=== PATIENT | female | born 1950 ===

== ENCOUNTER 2025-01-09 15:37 | Outpatient (RCR) | payer MEDICARE, SELFPAY ==
[2024-12-22 14:00] LABS: Glucose - Point of Care 124 mg/dl (70-99)
[2024-12-22 14:33] LABS: Glucose - Point of Care 108 mg/dl (70-99)
[2024-12-28 14:53] LABS: Glucose - Point of Care 162 mg/dl (70-99)
[2024-12-28 15:41] LABS: Glucose - Point of Care 114 mg/dl (70-99)
[2024-12-30 14:43] LABS: Glucose - Point of Care 127 mg/dl (70-99)
[2024-12-30 15:20] LABS: Glucose - Point of Care 97 mg/dl (70-99)
[2025-01-04 14:53] LABS: Glucose - Point of Care 124 mg/dl (70-99)
[2025-01-04 15:35] LABS: Glucose - Point of Care 85 mg/dl (70-99)
[2025-01-09 14:55] LABS: Glucose - Point of Care 95 mg/dl (70-99)
[2025-01-09 15:35] LABS: Glucose - Point of Care 101 mg/dl (70-99)
== END 2025-01-09 23:59 | disposition home or self-care (01) ==
LOC: CRHB 15:37
PROVIDERS: ATTENDING PHYSICIAN Student in an Organized Health Care Education/Training Program; PRIMARYCARE PHYSICIAN Family Medicine
DX: I25.10 Atherosclerotic heart disease of native coronary artery without angina pectoris (principal); Z95.1 Presence of aortocoronary bypass graft; Z95.4 Presence of other heart-valve replacement
CPT/HCPCS: 82962; G0422; G0423

== ENCOUNTER 2025-02-08 15:29 | Outpatient (RCR) | payer MEDICARE, SELFPAY ==
[2025-01-11 14:56] LABS: Glucose - Point of Care 110 mg/dl (70-99)
[2025-01-11 15:38] LABS: Glucose - Point of Care 89 mg/dl (70-99)
== END 2025-02-08 23:59 | disposition home or self-care (01) ==
LOC: CRHB 15:29
PROVIDERS: ATTENDING PHYSICIAN Student in an Organized Health Care Education/Training Program; PRIMARYCARE PHYSICIAN Family Medicine
DX: Z95.1 Presence of aortocoronary bypass graft (principal); Z95.4 Presence of other heart-valve replacement
CPT/HCPCS: 82962; G0422; G0423

== ENCOUNTER → 2025-03-01 14:56 | Outpatient (REF) | payer MEDICARE, SELFPAY | LOC: HWRCS 14:56 | PROVIDERS: ATTENDING PHYSICIAN Internal Medicine; FAMILY PHYSICIAN Family Medicine | DX: I25.10 Atherosclerotic heart disease of native coronary artery without angina pectoris (principal); I38 Endocarditis, valve unspecified; Z95.1 Presence of aortocoronary bypass graft; Z95.2 Presence of prosthetic heart valve | CPT/HCPCS: 93306 ==

== ENCOUNTER 2025-03-10 15:21 | Outpatient (RCR) | payer MEDICARE, SELFPAY | END 2025-03-10 23:59 | disposition home or self-care (01) | LOC: CRHB 15:21 | PROVIDERS: ATTENDING PHYSICIAN Student in an Organized Health Care Education/Training Program; PRIMARYCARE PHYSICIAN Family Medicine | DX: I25.10 Atherosclerotic heart disease of native coronary artery without angina pectoris (principal); Z95.1 Presence of aortocoronary bypass graft; Z95.4 Presence of other heart-valve replacement | CPT/HCPCS: G0422; G0423 ==

== ENCOUNTER 2025-04-10 16:09 | Outpatient (RCR) | payer MEDICARE, SELFPAY | END 2025-04-10 23:59 | disposition home or self-care (01) | LOC: CRHB 16:09 | PROVIDERS: ATTENDING PHYSICIAN Student in an Organized Health Care Education/Training Program; PRIMARYCARE PHYSICIAN Family Medicine | DX: I25.10 Atherosclerotic heart disease of native coronary artery without angina pectoris (principal); Z95.1 Presence of aortocoronary bypass graft; Z95.4 Presence of other heart-valve replacement | CPT/HCPCS: G0422; G0423 ==

== ENCOUNTER 2025-04-14 15:35 | Outpatient (RCR) | payer MEDICARE, SELFPAY | END 2025-05-01 18:19 | disposition home or self-care (01) | LOC: CRHB 15:35 | PROVIDERS: ATTENDING PHYSICIAN Student in an Organized Health Care Education/Training Program; PRIMARYCARE PHYSICIAN Family Medicine | DX: Z95.1 Presence of aortocoronary bypass graft (principal); I25.10 Atherosclerotic heart disease of native coronary artery without angina pectoris (principal); Z95.4 Presence of other heart-valve replacement | CPT/HCPCS: G0422; G0423 ==